=== PATIENT | male | born 1965 | race Caucasian/White ===

== ENCOUNTER → 2018-02-27 09:44 | Outpatient (CLI) | payer OTHER, SELFPAY ==
[2018-02-27 11:22] LABS: Add Manual Diff / Slide Review NO; Basophils Percent Auto 0.6 % (0-2); Eosinophils Percent Auto 0.7 % (2-4); Hematocrit 46.9 % (41-53); Hemoglobin 16.1 g/dL (13.5-17.5); Mean Corpuscular HGB Conc 34.2 % (30-36); Mean Corpuscular Hemoglobin 32.7 PG (26-34); Mean Corpuscular Volume 95.6 fL (80-100); Monocytes Percent Auto 7.5 % (3-14); Neutrophils Absolute Auto 3700 /uL (3000-5900); Neutrophils Percent Auto 78.2 % (50-75); Platelet Count 193 X10^3/uL (150-400); Red Blood Cell Count 4.91 X10^6/uL (4.5-5.9); Red Cell Distribution Width 14.1 % (11.6-14.8); White Blood Cell Count 4.8 X10^3/uL (4.5-11.0)
[2018-02-27 11:56] LABS: Alanine Aminotransferase 42 IU/L (21-72); Albumin 4.1 g/dL (3.5-5.0); Albumin Globulin Ratio 1.5 (1.0-2.8); Alkaline Phosphatase 66 U/L (38-126); Aspartate Aminotransferase 37 IU/L (17-59); Bilirubin Total 0.8 mg/dL (0.2-1.3); Bilirubin Unconjugated 0.6 mg/dL (0.0-1.1); Blood Urea Nitrogen 15 mg/dL (9-20); Carbon Dioxide 30 mmol/L (22-32); Chloride 104 mmol/L (98-107); Cholesterol 220 mg/dL (140-199); Estimated Glomerular Filt Rate > 60.0 mL/min (>60); Globulin 2.8 g/dL (1.7-4.1); Glucose 108 mg/dL (70-100); HDL Cholesterol 53 mg/dL (40-60); HEMOLYSIS < 15 (0-50); LDL Cholesterol Calculated 156 mg/dL (<100); Sodium 143 mmol/L (137-145); Total Protein 6.9 g/dL (6.3-8.2); Triglycerides 53 mg/dL (35-150)
== END ==
PROVIDERS: PCP Internal Medicine; Visit Provider Internal Medicine Endocrinology, Diabetes & Metabolism
DX: K51.819 Other ulcerative colitis with unspecified complications (principal); E29.1 Testicular hypofunction; Z13.220 Encounter for screening for lipoid disorders; E03.9 Hypothyroidism, unspecified
CPT/HCPCS: 36415; 80053; 80061; 80076; 85025

== ENCOUNTER → 2019-07-22 17:12 | Outpatient (CLI) | payer OTHER, SELFPAY ==
[2019-07-25 14:09] LABS: Homocysteine 8.7 umol/L (< 11.4)
[2019-07-25 15:54] LABS: Dehydroepiandrosterone Sulfate 80 mcg/dL (38-313)
[2019-07-28 16:11] LABS: Estrogen 109.9 pg/mL (60-190)
== END ==
PROVIDERS: PCP Internal Medicine; Visit Provider Naturopath
DX: E29.1 Testicular hypofunction (principal)
CPT/HCPCS: 36415; 82627; 82672; 83090; 84144

== ENCOUNTER → 2019-12-04 11:49 | Outpatient (CLI) | payer OTHER, SELFPAY ==
[2019-12-04 12:37] LABS: Add Manual Diff / Slide Review NO; Basophils Absolute Auto 0 /uL (0-100); Basophils Percent Auto 0.4 % (0-2); Eosinophils Absolute Auto 0 /uL (0-450); Eosinophils Percent Auto 1.4 % (2-4); Hemoglobin 15.6 g/dL (13.5-17.5); Lymphocytes Absolute Auto 900 /uL (1100-4500); Lymphocytes Percent Auto 26.4 % (25-40); Mean Corpuscular HGB Conc 34.7 % (30-36); Mean Corpuscular Hemoglobin 32.5 PG (26-34); Mean Corpuscular Volume 93.7 fL (80-100); Monocytes Absolute Auto 300 /uL (0-900); Monocytes Percent Auto 9.5 % (3-14); Neutrophils Absolute Auto 2200 /uL (1500-7000); Neutrophils Percent Auto 62.3 % (50-75); Platelet Count 193 X10^3/uL (150-400); Red Cell Distribution Width 13.2 % (11.6-14.8); White Blood Cell Count 3.5 X10^3/uL (4.5-11.0)
[2019-12-04 12:45] LABS: Hemoglobin A1C% w Est Avg Glu 5.4 % (4.0-6.0)
[2019-12-04 13:00] LABS: Alanine Aminotransferase 37 IU/L (<50); Albumin 4.3 g/dL (3.5-5.0); Albumin Globulin Ratio 1.3 (1.0-2.8); Alkaline Phosphatase 85 U/L (38-126); Aspartate Aminotransferase 53 IU/L (17-59); BUN Creatinine Ratio 21.6 (6-22); Bilirubin Total 0.7 mg/dL (0.2-1.3); Blood Urea Nitrogen 22 mg/dL (9-20); Calcium 9.4 mg/dL (8.4-10.2); Carbon Dioxide 27 mmol/L (22-32); Chloride 103 mmol/L (98-107); Estimated Glomerular Filt Rate > 60.0 mL/min (>60); Globulin 3.3 g/dL (1.7-4.1); Glucose 107 mg/dL (70-100); HEMOLYSIS < 15 (0-50); Potassium 4.1 mmol/L (3.4-5.1); Sodium 138 mmol/L (137-145); Total Protein 7.6 g/dL (6.3-8.2)
[2019-12-04 13:15] LABS: LDL Cholesterol Direct 139 mg/dL (<100)
[2019-12-04 13:31] LABS: Prostate Specific Antigen 0.525 ng/mL (0.10-4.00)
[2019-12-04 14:57] LABS: Creatinine Urine Random 80.8 mg/dL
[2019-12-04 15:02] LABS: Free T3, Triiodothyronine Free 2.97 pg/mL (2.77-5.27); Free T4, Direct Thyroxine 1.55 ng/dL (0.78-2.19)
[2019-12-04 15:03] LABS: Microalbumi Creatinin Ratio Ur 7.4 ug/mg CR (<30); Microalbumin Urine Random < 0.6 mg/dL (0-1.6)
[2019-12-04 15:08] LABS: Luteinizing Hormone 6.79 mIU/mL
[2019-12-04 15:15] LABS: Thyroid Stimulating Hormone 0.46 uIU/mL (0.47-4.68)
[2019-12-05 07:08] LABS: Sex Hormone Binding Globulin 88.1 nmol/L (19.3-76.4); Triiodothyronine T3 Total 89 ng/dL (71-180)
[2019-12-09 10:36] LABS: Testosterone % Fr + Wkly bound 7.8 % (9.0-46.0); Testosterone Fr+Wkly bound 46.3 ng/dL (40.0-250.0); Testosterone, Total 593.5 ng/dL (264.0-916.0)
== END ==
PROVIDERS: Referring Provider Internal Medicine Endocrinology, Diabetes & Metabolism; Visit Provider Internal Medicine Endocrinology, Diabetes & Metabolism
DX: D75.1 Secondary polycythemia (principal); E03.9 Hypothyroidism, unspecified; E29.1 Testicular hypofunction; R73.03 Prediabetes
CPT/HCPCS: 36415; 80053; 82043; 82570; 83002; 83036; 83721; 84153; 84270; 84403; 84439; 84443; 84480; 84481; 85025

== ENCOUNTER 2021-05-07 16:35 | Emergency (ER) | payer OTHER, SELFPAY ==
[2021-05-07 16:41] VITALS: BP 166/100; PULSE 79; RESP 16; TEMP 36.8; O2SAT 98
--- NOTE | 2021-05-07 17:57 | ED_ITS ---
HPI - Extremity Injury (Lower) <GRANT Stacy - Last Filed: 05/07/21 20:14> General Chief Complaint: Extremity Injury, Lower Stated Complaint: ROLLED LEFT FOOT Time Seen by Provider: 05/07/21 17:28 Source: patient Mode of arrival: Ambulatory History of Present Illness HPI Narrative: 55-year-old otherwise healthy male presents to the emergency department today for left ankle pain after rolling his ankle while putting his pants on a morning. He reports that yesterday he was on his knees working for at least 5 hours on his house in a bent over position, he has a previous injury and surgical repair of L5-S1 as well as L4-L5. He reports that he had some footdrop and difficulty with dorsiflexion after this injury and has had the symptoms previously on the left. He reports that maybe this is why he was unsteady putting his pants on today he does have some numbness to the top of his mitchell, foot, and difficulty with dorsiflexion of his great toe. He reports that his ankle is not painful at this time, he denies thinking that this is broken and he is able to bear weight without difficulty. Related Data Home Medications Medication Instructions Recorded Confirmed levothyroxine 175 mcg tablet 175 mcg PO DAILY 11/23/17 01/04/19 (Synthroid) mesalamine 1.2 gram tablet,delayed 2.4 gram PO QID tab 11/23/17 01/04/19 release Previous Rx's Medication Instructions Recorded methocarbamol 500 mg tablet 500 mg PO Q8H PRN #14 tab 05/07/21 Allergies Allergy/AdvReac Type Severity Reaction Status Date / Time Penicillins [PENICILLINS] Allergy Severe ANAPHYLAXSI Verified 05/07/21 16:11 S silver nitrate Allergy Unknown Verified 05/07/21 16:11 [SILVER NITRATE] Sulfa (Sulfonamide Allergy Unknown Verified 05/07/21 16:11 Antibiotics) [SULFA (SULFONAMIDE ANTIBIOTICS)] Review of Systems <GRANT Stacy - Last Filed: 05/07/21 20:14> Review of Systems Narrative: General: denies fever, chills Head/Neck: denies headache, neck pain Eyes: denies visual changes, eye pain Cardio: denies chest pain, palpitations Respiratory: denies shortness of breath, cough GI: denies abdominal pain, nausea, vomiting, or diarrhea : denies dysuria, hematuria MSK: denies joint pain, denies joint swelling, reports difficulty with dorsiflexion of left great toe otherwise no problems with strength Skin: denies rash, itching Neuro: denies numbness, tingling Patient History <GRANT Stacy - Last Filed: 05/07/21 20:14> Social History Smoking Status: Never smoker Smoking Status: Never smoker Exam <GRANT Stacy - Last Filed: 05/07/21 20:14> Narrative Exam Narrative: Independently reviewed vitals signs and nursing notes. General: Awake, alert, nontoxic, no cardiorespiratory distress Head/Neck: Atraumatic, neck full range of motion Eyes: EOMI, conjunctiva normal Nose: nares patent, no rhinorrhea Mouth/Throat: moist mucus membranes, posterior pharynx normal, no oral lesions Cardio: Regular rate and rhythm, no peripheral edema Respiratory: respirations unlabored without wheezing, stridor, or rales. No retractions. GI: Abdomen soft, nontender MSK: Moves all extremities, neurovascularly intact, patient has mild weakness with dorsiflexion but it has improved from earlier he reports, no point tenderness to the lateral or medial malleoli, no edema, ecchymosis, skin color changes, or current sensation changes. Skin: Normal capillary refill, no rash Neuro: Normal speech and cognition, normal gait Initial Vital Signs Initial Vital Signs: Vital Signs Temperature 98.3 F 05/07/21 16:41 Pulse Rate 79 05/07/21 16:41 Respiratory Rate 16 05/07/21 16:41 Blood Pressure 166/100 H 05/07/21 16:41 Pulse Oximetry 98 05/07/21 16:41 <Nazia Rose DO - Last Filed: 05/21/21 08:12> Initial Vital Signs Initial Vital Signs: Vital Signs Temperature 98.3 F 05/07/21 16:41 Pulse Rate 79 05/07/21 16:41 Respiratory Rate 16 05/07/21 16:41 Blood Pressure 166/100 H 05/07/21 16:41 Pulse Oximetry 98 05/07/21 16:41 Course <ARELI StacyP - Last Filed: 05/07/21 20:14> Vital Signs Vital signs: Vital Signs - 8 hr 05/07/21 16:41 Temperature 98.3 F Pulse Rate 79 Respiratory Rate 16 Blood Pressure 166/100 H Pulse Oximetry 98 <Nazia Rose DO - Last Filed: 05/21/21 08:12> Vital Signs Vital signs: Vital Signs - 8 hr 05/07/21 16:41 Temperature 98.3 F Pulse Rate 79 Respiratory Rate 16 Blood Pressure 166/100 H Pulse Oximetry 98 MDM - Extremity Injury (Lower) <GRANT Stacy - Last Filed: 05/07/21 20:14> MDM Narrative Medical decision making narrative: 55-year-old male presents emergency department for concern about the dorsiflexion weakness of his left great toe and mild ankle pain after ankle. After exam and history this is most likely a low back strain with exacerbation of his prior L5-S1 injury, he does have mild weakness with dorsiflexion of his left great toe, however it is improving. Recommend follow-up with Dr. Gordon if this is persistent, anti-inflammatories, and muscle relaxers. I have a very low suspicion for the etiology being neurovascular nature, he does not have any other symptoms, and since he has had problems with footdrop in the past related to his prior injury and mild numbness his anterior left mitchell and dorsum of foot this is most likely related to L5 inflammation around the nerve. Differential includes muscular strain, osteoarthritis, herniated disc, spinal stenosis, sacroiliitis, piriformis syndrome, sciatica, cauda equina syndrome. Patient is appropriate and amenable to discharge home. Vital signs are stable on repeat examination is unremarkable. Patient has been informed of results. Patient has been given strict return to ER precautions for any new or worsening symptoms. Patient understands to follow up closely with outpatient providers as instructed. Patient understands plan and agrees to discharge home. All questions and concerns answered at this time. Discharge Plan Departure Patient Disposition: Home Clinical Impression: Low back strain Qualifiers: Encounter type: initial encounter Qualified Code(s): S39.012A - Strain of muscle, fascia and tendon of lower back, initial encounter Instructions: Low Back Pain Activity Restrictions/Additional Instructions: This is most likely an exacerbation of your L5 to S1 previous injury, this as where your L5 nerve root is and it controls the top of your foot and toes which is responsible for dorsiflexion. If this is persistent, please follow-up with Dr. Gordon as referred, and thank you for sharing his contact. I do not think that this is neurovascular in nature, if this is progressive however pl ease return to the emergency department for further evaluation. Because you were working in a bent over position on your knees for 5 hours yesterday this most likely just cause a strain to the muscles in your back and or anything that would pull on your L5 area. I suspect there is a lot a local inflammation but I do not suspect any changes to the disc, your prior surgical repair, or any emergent life or limb causes to this pain. *What to do: *Please continue to take your regular medications as directed. [x ] New medication prescriptions sent to your pharmacy: [ [facility]] [ ] New medication written as a paper prescription [ ] No new medications given *Please follow up with your primary care provider in 2-3 days, call for an appointment. Let them know you were seen in the Emergency Department and that we ask that you be seen in follow up. We will electronically transmit a record of today's note if your PCP is in our system *If you do not have a primary care provider please contact the [facility] Resource line at [phone]. They will ask some questions about your medical history and help get you set up with a doctor in the community. *Return to Emergency Department if you should have any new, worsening or concerning symptoms, such as [fever greater than 101F, chills, worsening pain, persistent vomiting or other bothersome symptoms] Prescriptions: New methocarbamol 500 mg tablet 500 mg PO Q8H PRN (Reason: muscle pain) Qty: 14 0RF No Action mesalamine 1.2 gram tablet,delayed release (DR/EC) 2.4 gram PO QID 0RF levothyroxine [Synthroid] 175 mcg tablet 175 mcg PO DAILY 0RF Referrals: Pardeep Gordon MD [Non-Staff] - 3-5 days (if this persists) <Nazia Rose DO - Last Filed: 05/21/21 08:12> Cosign ED Attending Cosalpeshature Attestation: I was immediately available in the department for consultation. Documentation has been reviewed.
== END 2021-05-07 18:04 | disposition home or self-care (01) ==
PROVIDERS: Emergency Provider Nurse Practitioner Critical Care Medicine
DX: S39.012A Strain of muscle, fascia and tendon of lower back, initial encounter (principal); M25.572 Pain in left ankle and joints of left foot; X50.9XXA Other and unspecified overexertion or strenuous movements or postures, initial encounter
CPT/HCPCS: 99281